=== PATIENT | male | born 1985 ===

== ENCOUNTER → 2024-01-06 | Outpatient (REF) | payer OTHER ==
[2024-01-06 14:33] LABS: SEMEN APPEARANCE OPAQUE (OPAQUE)
[2024-01-06 14:34] LABS: SEMEN VISCOSITY LIQUID (LIQUID); SEMEN VOLUME 4.7 ml (2.0-5.0); SEMEN pH 8.5 (7.0-8.0); SPERM CONCENTRATION 24.4 M/ml (>=15.0); WBC CONCENTRATION <=1 M/ml (<=1 M/ml)
== END ==
LOC: M LAB REF 14:29
PROVIDERS: ATTEND Physician Assistant
DX: Z31.41 Encounter for fertility testing (principal)